=== PATIENT | female | born 1990 | race Caucasian/White ===

== ENCOUNTER 2018-08-19 16:54 | Inpatient (IN) | payer SELFPAY ==
[~2018-08-19] VITALS: Ht 154.9 cm; Wt 53.8 kg
[2018-08-19] VITALS (82 sets, daily range): O2SAT 92–100
[~2018-08-19 16:54] MED LIST: ATIVAN 1MG T1 MG/TAB PO; PREDNISONE20 MG PO
[2018-08-19 17:29] LABS: BASO % 0.2 % (0.0-2.0); EOS % 0.2 % (0-4.0); GRAN % 78.3 % (42.2-75.2); HEMATOCRIT 41.9 % (37.0-47.0); HEMOGLOBIN 14.2 g/dl (12.5-16.0); LYMPH # 1.6 (1.2-3.4); LYMPH % 12.4 % (20.0-51.0); MEAN CELL VOLUME 103 fl (80.0-100.0); MEAN CORPUSCULAR HEMOGLOBIN 35 pg (27.0-31.0); MEAN CORPUSCULAR HGB CONC 34 g/dl (33.0-37.0); MEAN PLATELET VOLUME 9.4 fl (7.4-10.4); MONO # 1.1 (0.1-0.6); MONO % 8.6 % (1.7-9.3); PLATELET COUNT 225 K/mm3 (130-400); RED BLOOD COUNT 4.06 M/mm3 (4.10-5.30); REDCELL DISTRIBUTION WIDTH-CV 13.6 % (11.5-14.5)
[2018-08-19 17:42] LABS: ALANINE AMINOTRANSFERASE 53 U/L (9-52); ALBUMIN 4.8 gm/dL (3.5-5.0); ALKALINE PHOSPHATASE 91 U/L (50-136); ANION GAP 13 mmol/L (7-16); AST,SGOT 106 U/L (15-37); BILIRUBIN,TOTAL 1.3 mg/dL (0.0-1.0); BLOOD UREA NITROGEN 7 mg/dL (7-17); CALCIUM 9.4 mg/dL (8.4-10.2); CARBON DIOXIDE 25 mmol/L (22-30); CHLORIDE 95 mmol/L (98-107); CREATININE, serum 0.71 mg/dL (0.52-1.25); GLUCOSE 134 mg/dL (74-106); LIPASE 246 U/L (23-300); POTASSIUM 3.2 mmol/L (3.4-5.0); SODIUM 133 mmol/L (137-145); TOTAL PROTEIN 8.6 gm/dL (6.4-8.2)
[2018-08-19 18:00] LABS: ALCOHOL(ethanol),MEDICAL < 10 mg/dL
[2018-08-19 18:32] LABS: ACETONE,SERUM NEGATIVE
[2018-08-19 18:57] LABS: COLLECTION METHOD CLEAN CATCH
[2018-08-19 19:03] LABS: PH 7 (5-8); SQUAMOUS EPITHELIAL 0-2 /hpf; URINE APPEARANCE Clear; URINE BACTERIA Rare /hpf; URINE BILIRUBIN Negative (NEGATIVE); URINE BLOOD 1+ (NEGATIVE); URINE COLOR Straw; URINE GLUCOSE Negative (NEGATIVE); URINE KETONE Negative (NEGATIVE); URINE LEUKOCYTE ESTERASE Negative (NEGATIVE); URINE NITRATE Negative (NEGATIVE); URINE PROTEIN(semi-quant) Negative (NEGATIVE); URINE RBC None Seen /hpf; URINE UROBILINOGEN Negative (NEGATIVE)
[2018-08-19 19:13] LABS: TRICYCLIC ANTIDEPRESS URINE NEGATIVE
--- NOTE | 2018-08-19 20:25 | NUR ---
Report received from America LOPEZ from ED.
--- NOTE | 2018-08-19 21:00 | NUR ---
Pt arrived to ICU08 with personal belongings. Jeans and shoes were in place. Pt agreed to feeling well enough to ambulated to ICU bed from ED stretcher. Ambulation was steady with no loss of balance noted or dizziness reported by pt. Shoes and jeans were removed. Pt used the toilet in pt room at this time. Mother Helena was in the ICU waiting room, staff settled pt and showed mother to pt room. Pt had very mild tremors noted to upper extremities at this time.
[2018-08-20] VITALS (1016 sets, daily range): BP systolic 122–141; BP diastolic 89–99; PULSE 92–122; TEMP 98–99.2; O2SAT 85–100
[2018-08-20 01:58] LABS: ALBUMIN 4.7 gm/dL (3.5-5.0); BILIRUBIN,TOTAL 1.3 mg/dL (0.0-1.0); MAGNESIUM 1.4 mg/dL (1.6-2.3); TOTAL PROTEIN 8.6 gm/dL (6.4-8.2)
--- NOTE | 2018-08-20 03:00 | NUR ---
Pt fell asleep approximately 2200, then pts mother left. Had been noted resting with eyes closed until call light went off. Pt requested to use a restroom other than the one located in the ICU room due to "my stomach is on fire." Pt was placed on portable tele box and assisted to Express Unit restroom X1 standby assist. Pt denies any lightheadedness or concerns with walking. Pt reports "feeling much better." Once done with the restroom pt was escorted back to ICU08 and place back onto monitor.
[2018-08-20 03:14] LABS: BILIRUBIN UNCONJUGATED 0.8 mg/dL (0.0-1.1); BILIRUBIN,DIRECT 0.4 mg/dL (0.0-0.4)
[2018-08-20 05:05] LABS: BASO % 0.2 % (0.0-2.0); EOS % 0.4 % (0-4.0); GRAN # 3.1 (1.4-6.5); GRAN % 63.5 % (42.2-75.2); HEMATOCRIT 37.1 % (37.0-47.0); LYMPH # 1.2 (1.2-3.4); LYMPH % 23.6 % (20.0-51.0); MEAN CELL VOLUME 107 fl (80.0-100.0); MEAN CORPUSCULAR HEMOGLOBIN 35 pg (27.0-31.0); MEAN CORPUSCULAR HGB CONC 33 g/dl (33.0-37.0); MEAN PLATELET VOLUME 9.7 fl (7.4-10.4); MONO # 0.6 (0.1-0.6); MONO % 11.9 % (1.7-9.3); PLATELET COUNT 163 K/mm3 (130-400); RED BLOOD COUNT 3.48 M/mm3 (4.10-5.30); REDCELL DISTRIBUTION WIDTH-CV 13.9 % (11.5-14.5)
[2018-08-20 05:07] LABS: HEMOGLOBIN 12.2 g/dl (12.5-16.0)
[2018-08-20 05:16] LABS: CALCIUM 8.3 mg/dL (8.4-10.2); CREATININE, serum 0.63 mg/dL (0.52-1.25); POTASSIUM 3.9 mmol/L (3.4-5.0)
[2018-08-20 05:17] LABS: INR 1.1 (0.8-3.0); PROTHROMBIN TIME 12.6 SECONDS (9.7-12.8)
[2018-08-20 05:20] LABS: PARTIAL THROMBOPLASTIN TIME 28.9 SECONDS (26.0-37.0)
--- NOTE | 2018-08-20 07:10 | NUR ---
Bedside report provided to Mell LOPEZ. Pt alert and involved.
--- NOTE | 2018-08-20 07:15 | NUR ---
Bedside report provided to Mell LOPEZ
[2018-08-20] MEDS ORDERED: STELARA45 MG/0.1 SQ (09:20)
--- NOTE | 2018-08-20 10:28 | NUR ---
First visit from the django developer. No needs right now.
--- NOTE | 2018-08-20 10:49 | NUR ---
JONN and SW student met with the patient to discuss discharge plan. 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 She reports independence with ADLs and does not use any DME. The patient does not have a PCP and is self pay. She states that she has utilized the [facility] in the past and receives her medications at the [facility]. She reports no difficulties obtaining her meds. JONN discussed the [facility] and the [facility] for primary care. The patient reports that she would think about being set up there, but was interested in receiving information on the clinics. JONN provided. JONN also consulted financial counseling. They are to meet with the patient. JONN then addressed the patient's alcohol use. The patient reports that she is not interested in treatment for the alcohol use, but more interested in either a therapist or counselor to talk to. JONN discussed [facility]. The patient reports that she would like to research the different providers in the area, before making a decision on who to pursue. SW to continue to follow.
--- NOTE | 2018-08-20 11:00 | NUR ---
PATIENT DOING FAIRLY WELL THIS MORNING. SHE IS TREMULOUS, AND TACHYCARDIC WITH ACTIVITY, BUT OTHERWISE, NO OTHER SYMPTOMS. I'VE ASKED HER REPEATEDLY IF SHE IS HAVING ISSUES WITH ANXIETY, HALLUNICATIONS AUDITORY AND VISUAL. SHE CONTINUES TO DENY THESE SYMPTOMS. WILL CONTINUE TO MONITOR CLOSELY
--- NOTE | 2018-08-20 15:07 | NUR ---
DR. CABELLO HAS EXTENSIVE CONVERSATION WITH PATIENT, MOTHER, AND OTHER FAMILY MEMBER AT THIS TIME REGARDING PLAN OF CARE.
[2018-08-20 15:26] LABS: FOLATE (FOLIC ACID) 9.9 ng/mL (7.0-31.4)
--- NOTE | 2018-08-20 16:28 | NUR ---
AFTER ANSWERING ALL THE QUESTIONS FROM THE PATIENT AND FAMILY. PATIENT HAS DECIDED TO STAY IN HOSPITAL FOR HER DETOX TREATMENT. DR. CABELLO UPDATED. SHE STATES SHE WILL PLACE TRANSFER ORDERS SOON FOR PATIENT TO MOVE TO MEDICAL FLOOR.
--- NOTE | 2018-08-20 18:15 | NUR ---
REPORT CALLED TO JESSICA VALENCIA. PATIENT WILL GO UP TO ROOM 357
--- NOTE | 2018-08-20 18:30 | NUR ---
Pt arrived to unit, oriented to room, call light in reach
--- NOTE | 2018-08-20 19:15 | NUR ---
Report given to Tanesha LOPEZ, pt denies needs, family at bedside
--- NOTE | 2018-08-20 20:30 | NUR ---
Intial shift assessment done- denies pain- denies any anxiety- does have mild tremors of hands--IV of NS at 125cc/hr to L/AC--Tele on, ST. Seizure Precautions, refusing SCD,s-- Up to bathroom, walking in room without problems.
[2018-08-21] VITALS (7 sets, daily range): BP systolic 104–146; BP diastolic 73–97; PULSE 65–102; TEMP 98–978.4
[2018-08-21 06:40] LABS: BASO % 0.4 % (0.0-2.0); EOS % 0.7 % (0-4.0); GRAN # 3.8 (1.4-6.5); GRAN % 67.9 % (42.2-75.2); HEMATOCRIT 37.8 % (37.0-47.0); HEMOGLOBIN 12.1 g/dl (12.5-16.0); LYMPH # 1.1 (1.2-3.4); LYMPH % 19.2 % (20.0-51.0); MEAN CELL VOLUME 108 fl (80.0-100.0); MEAN CORPUSCULAR HEMOGLOBIN 35 pg (27.0-31.0); MEAN CORPUSCULAR HGB CONC 32 g/dl (33.0-37.0); MEAN PLATELET VOLUME 9.9 fl (7.4-10.4); MONO # 0.6 (0.1-0.6); MONO % 11.4 % (1.7-9.3); PLATELET COUNT 171 K/mm3 (130-400); RED BLOOD COUNT 3.51 M/mm3 (4.10-5.30); REDCELL DISTRIBUTION WIDTH-CV 13.8 % (11.5-14.5)
[2018-08-21 06:57] LABS: ALBUMIN 3.9 gm/dL (3.5-5.0); BILIRUBIN,TOTAL 0.6 mg/dL (0.0-1.0); CALCIUM 8.9 mg/dL (8.4-10.2); CREATININE, serum 0.78 mg/dL (0.52-1.25); MAGNESIUM 2.5 mg/dL (1.6-2.3); POTASSIUM 4.5 mmol/L (3.4-5.0); TOTAL PROTEIN 7.4 gm/dL (6.4-8.2)
--- NOTE | 2018-08-21 07:48 | NUR ---
Quiet night- Awake till about 0300,, states thats normal for her. No meds needed per detox protocol. Tele on- does get tachy with activity but rate comes down quickly when back to bed.
--- NOTE | 2018-08-21 08:51 | NUR ---
Assessment completed, alert/oriented, vitals stable, she scored 4-5 on detox protocol this morning/ refused ativan, she has obvious tremors and HR slgihtly tachy, she otherwise is pleasnt and cooperative, denies pain, really wanting to go home today, up independently, denies other needs at this time
--- NOTE | 2018-08-21 12:41 | NUR ---
Follow up visit from the chipper. No needs right now.
--- NOTE | 2018-08-21 13:00 | NUR ---
Report received from JESSICA Munoz. PT denies needs at this time.
--- NOTE | 2018-08-21 18:31 | NUR ---
Pt had uneventful afternoon. Slept the majority of the afternoon. Denies further needs at this time; will continue to monitor.
--- NOTE | 2018-08-21 19:11 | NUR ---
REport given to JESSICA Diaz. Pt sleeping in bed.
--- NOTE | 2018-08-21 19:53 | NUR ---
PT IN BED WITH HOB ELEVATED TO 15 DEGREE ANGLE, HAS BOYFRIEND IN ROOM WITH PT. PT ADVISES HAS BEEN SLEEPING A LOT THE LAST COUPLE OF DAYS, DENIES PAIN OR DISCOMFORT AND NO ANXIETY. PT HAS NO NEEDS AT THIS TIME, CALL LIGHT WITHIN REACH.
[2018-08-22] VITALS (12 sets, daily range): BP systolic 98–128; BP diastolic 66–88; PULSE 101–130; TEMP 97–99.1
--- NOTE | 2018-08-22 04:36 | NUR ---
UNEVENTFUL NIGHT FOR PT. PT AWAKENS FOR VITAL SIGNS THAT ARE DONE EVERY 2 HOURS AND DETOX SCREENING. PT DENIES ANY ANXIETY AND HAS BEEN RESTING/SLEEPING WELL. PT PLACES COVERS OVER HER HEAD AND WHEN ENTERS THE ROOM SHE COMES OUT OF THE COVERS. NO S/S OF ANXIETY HAS BEEN NOTED. NO NEEDS AT THIS TIME, CALL LIGHT WITHIN REACH.
--- NOTE | 2018-08-22 07:10 | NUR ---
Pt AAOx3. Pt independent in room, IV wrapped and pt going to take shower. Breakfast is being brought in for pt from family.
[2018-08-22 08:23] LABS: BASO % 0.6 % (0.0-2.0); EOS # 0.1 (0.0-0.7); EOS % 1.2 % (0-4.0); GRAN # 4.3 (1.4-6.5); GRAN % 64.1 % (42.2-75.2); HEMATOCRIT 43.6 % (37.0-47.0); HEMOGLOBIN 14.2 g/dl (12.5-16.0); LYMPH # 1.5 (1.2-3.4); LYMPH % 23.1 % (20.0-51.0); MEAN CELL VOLUME 107 fl (80.0-100.0); MEAN CORPUSCULAR HEMOGLOBIN 35 pg (27.0-31.0); MEAN CORPUSCULAR HGB CONC 33 g/dl (33.0-37.0); MEAN PLATELET VOLUME 10.2 fl (7.4-10.4); MONO # 0.7 (0.1-0.6); MONO % 10.6 % (1.7-9.3); PLATELET COUNT 244 K/mm3 (130-400); RED BLOOD COUNT 4.08 M/mm3 (4.10-5.30); REDCELL DISTRIBUTION WIDTH-CV 13.5 % (11.5-14.5)
[2018-08-22 08:39] LABS: CALCIUM 9.8 mg/dL (8.4-10.2); CREATININE, serum 0.77 mg/dL (0.52-1.25); POTASSIUM 3.4 mmol/L (3.4-5.0)
--- NOTE | 2018-08-22 19:25 | NUR ---
PT IN ROOM SITTING IN BED WITH BOYFRIEND BY SIDE. PT HAS SLIGHT TEMMORS THAT ARE VISUAL, BUT SHE DENIES ANXIETY, PAIN, OR DISCOMFORT. PT HAS BEEN BRING IN FOOD FROM HOME AND EATING WELL. NO NEEDS AT THIS TIME. CALL LIGHT WITHIN REACH.
[2018-08-23] VITALS (11 sets, daily range): BP systolic 84–133; BP diastolic 50–79; PULSE 80–118; TEMP 97.8–101.4
--- NOTE | 2018-08-23 00:43 | NUR ---
CHANGE IV SITE WITH 20G TO RIGHT AC, X2 ATTEMPTS WITH NO DIFFICULTIES AND PT TOLERATED WELL. REMOVED IV FROM LEFT AC, CATHETER INTACT, APPLIED PRESSURE TILL BLEEDING STOPPED, AND THEN A PROTECTIVE DRESSING ON.
--- NOTE | 2018-08-23 05:16 | NUR ---
PT HAS SCORED ABOUT 3 TIMES THIS SHIFT AND WAS GIVEN ATIVAN. PT HAS BOYFRIEND IN ROOM WITH HER. HE HAS BEEN SLEEPING WITH HER IN HER BED. THE COUPLE HAD THE BED RAISED ABOUT 3 TO 4 FEET FROM THE GROUND, ADVISED THEM THAT THE BED NEEDED TO STAY IN THE LOW POSITION FOR SAFETY REASONS. PT HAS BEEN CO-OPERATIVE AND DENIES ANY ANXIETY, PAIN, OR DISCOMFORT. NO NEEDS AT THIS TIME, CALL LIGHT WITHIN REACH.
--- NOTE | 2018-08-23 07:16 | NUR ---
Pt continues to sleep soundly in bed, boyfriend at bedside.
--- NOTE | 2018-08-23 08:30 | NUR ---
Pt is awake and A/Ox4, sitting up in bed. Denies pain or discomfort at this time. Scored 2 on ETOH scale. Tolerating diet. Boyfriend at bedside, denies any other needs.
--- NOTE | 2018-08-23 11:50 | NUR ---
Pt trying to rest in bed, mother at bedside. Pt denies any other needs. Tolerating PO well, only factor scoring on ETOH scale is elevated HR.
--- NOTE | 2018-08-23 18:07 | NUR ---
Pt has had an overall uneventful shift. She has not required and PRN ativan per ETOH protocol. Pt denies any needs, mother at bedside.
--- NOTE | 2018-08-23 20:00 | NUR ---
Shift assessment complete. Pt resting in bed, awake, a&o, cooperative c cares. Pt denies pain or any other c/o. No tremor or other s/s detox noted at this time. INT patent. Tele in place. Pt back to bed p being ind to shower. Pt denies needs. Call light in reach, visitors at bedside. Will continue to monitor.
[2018-08-24 00:06] VITALS: BP 109/71; PULSE 91; TEMP 99.2
[2018-08-24 04:33] VITALS: BP 117/77; PULSE 124; TEMP 99
[2018-08-24 07:18] VITALS: BP 106/79; PULSE 127; PULSE 15; TEMP 97.5
--- NOTE | 2018-08-24 07:44 | NUR ---
commercial service technician called because pt's heart rate was in the 140-150's; pt standing at her sink putting on makeup. States she feels fine, asymptomatic, denies chest palpitations, pain, or shortness of breath. Heart rate decreases when pt sits down. She had been tachycardic overnight. Denies needs at this time; will continue to monitor.
[2018-08-24 10:10] VITALS: BP 120/78; PULSE 122; TEMP 97.5
[2018-08-24 12:03] VITALS: BP 117/81; PULSE 102; TEMP 99
[2018-08-24] MEDS ORDERED: B-121000 MCG PO (12:20)
[2018-08-24] MEDS ORDERED: FOLIC ACID 11 MG/TA1 PO (12:20)
[2018-08-24] MEDS ORDERED: DUO-KAPS1 CAP PO (12:21)
[2018-08-24] MEDS ORDERED: NATURE'S BLEND100 M2 PO (12:21)
--- NOTE | 2018-08-24 13:34 | NUR ---
Reviewed all discharge medications, instructions, and follow up appointments with patient. INT and tele removed. All questions answered in depth. Denies furhter needs.
--- NOTE | 2018-08-24 14:00 | NUR ---
The patient is to discharge back home today, 08/24. An appointment with the PCP, Dr. Doc Hernandez was scheduled. No additional needs at this time.
== END 2018-08-24 14:06 | disposition home or self-care (01) | DRG 897 ==
LOC: COL.ER 16:54 → ICU 19:53 → MEDICAL 08-20 18:33
PROVIDERS: Emergency Medicine; Family Medicine; Nurse Practitioner; Physician Assistant; ADMIT Hospitalist
DX: F10.231 Alcohol dependence with withdrawal delirium (principal); Y90.0 Blood alcohol level of less than 20 mg/100 ml; F41.9 Anxiety disorder, unspecified; E87.6 Hypokalemia; K76.0 Fatty (change of) liver, not elsewhere classified; K70.9 Alcoholic liver disease, unspecified; E55.9 Vitamin D deficiency, unspecified; R00.0 Tachycardia, unspecified
CPT/HCPCS: 99232-AI; G0378; J1650; J2060; J2405; J3411; J3475; J7030